=== PATIENT | male | born 1955 | race Caucasian/White ===

== ENCOUNTER 2018-02-22 19:27 | Inpatient (IN) | payer BC ==
[~2018-02-22] VITALS: Ht 193 cm; Wt 124.0 kg
[~2018-02-22 19:27] MED LIST: ADULT ASPIRIN R81 MG PO; ASPIR 8181 M1 PO; DAILY VALUE1 EACH PO; LIPITOR40 MG PO; SIMVASTATIN10 MG PO
[2018-02-22 19:44] LABS: BASOPHIL (%) 0.7 % (0-1); BASOPHIL COUNT 0.1 K/uL (0-0.1); EOSINOPHIL COUNT 0.4 K/uL (0-0.3); HEMATOCRIT 46.4 % (38.0-50.0); HEMOGLOBIN 15.9 G/DL (12.5-16.6); IMMATURE GRANULOCYTE (%) 0.2 % (0.0-0.7); LYMPHOCYTE (%) 26.2 % (15-42); LYMPHOCYTE COUNT 2.6 K/uL (1.0-2.8); MCH 30.8 PG (29.0-34.0); MCHC 34.3 G/DL (30.0-36.0); MCV 89.7 FL (86-99); MONOCYTE (%) 10.6 % (3-12); MONOCYTE COUNT 1.1 K/uL (0-0.8); NEUTROPHIL (%) 58.3 % (45-76); NEUTROPHIL COUNT 5.8 K/uL (1.8-6.4); PLATELET COUNT 234 K/uL (156-360); RBC DIS.WIDTH-CV 12.9 % (11.8-14.6); RBC DIS.WIDTH-SD 42.4 % (39-53); RED BLOOD COUNT 5.17 M/uL (4.00-5.50); WHITE BLOOD COUNT 9.9 K/uL (4.1-10.2)
[2018-02-22 19:59] LABS: AMYLASE 69 IU/L (1-118); CHLORIDE 105 mEq/L (99-109); SODIUM 138 mEq/L (136-147)
[2018-02-22 20:01] LABS: GLUCOSE 107 mg/dL (70-99)
[2018-02-22 20:04] LABS: SERUM ETHYL ALCOHOL < 10 mg/dL
[2018-02-22 20:05] LABS: CREATININE 1.1 mg/dL (0.6-1.3); GFR ESTIMATE (CALCULATED) > 59 mL/min/ (58.99-99999)
[2018-02-22 20:06] LABS: UREA NITROGEN (BUN) 19 mg/dL (9-23)
[2018-02-22 20:08] LABS: LIPASE 24 U/L (1.0-51.0)
[2018-02-22 20:10] LABS: TROP-I INTERPRETATION NEGATIVE; TROPONIN-I < 0.01 ng/mL (0.0-0.30)
[2018-02-22 21:04] LABS: APPEARANCE CLEAR ((CLEAR)); BILIRUBIN NEGATIVE; BLOOD NEGATIVE; COLOR STRAW ((YELLOW)); GLUCOSE (STRIP) NEGATIVE; KETONES NEGATIVE; LEUKOCYTES NEGATIVE; NITRITE NEGATIVE; PROTEIN (STRIP) NEGATIVE; SPECIFIC GRAVITY 1.011 (1.000-1.030); UCUL ADDED? NO; UROBILINOGEN 0.2 MG/DL (0.2-1.0)
[2018-02-22 21:37] LABS: AMPHETAMINE NEGATIVE (500 ng/mL); BARBITURATES NEGATIVE (200 ng/mL); BENZODIAZEPINES NEGATIVE (150 ng/mL); BUPRENORPHINE NEGATIVE (10 ng/mL); COCAINE NEGATIVE (150 ng/mL); METHADONE NEGATIVE (200 ng/mL); METHAMPHETAMINE NEGATIVE (500 ng/mL); OPIATES (MORPHINE) NEGATIVE (100 ng/mL); OXYCODONE NEGATIVE (100 ng/mL); PHENCYCLIDINE NEGATIVE (25 ng/mL); PROPOXYPHENE NEGATIVE (300 ng/mL); THC CANNABINOIDS NEGATIVE (50 ng/mL); TRICYCLIC ANTIDEPRESSANTS NEGATIVE (300 ng/mL)
[2018-02-22] MEDS ORDERED: FISH OIL 1,0001 EAC7 PO (22:23)
[2018-02-22] MEDS ORDERED: GLUCOSAMINE &1 EAC1 PO (22:23)
[2018-02-23 00:37] VITALS: BP 141/84
[2018-02-23 07:38] VITALS: BP 133/84
[2018-02-23 12:22] VITALS: BP 129/64
== END 2018-02-23 15:55 | disposition home or self-care (01) | DRG 86 ==
LOC: EME 19:27 → EDOF 22:20 → CANRESERV 22:25 → ENRESERV 22:25 → 3EAST 02-23 00:22
PROVIDERS: Emergency Medicine
DX: S06.5X0A Traumatic subdural hemorrhage without loss of consciousness, initial encounter (principal); R47.01 Aphasia; E78.5 Hyperlipidemia, unspecified; W22.8XXA Striking against or struck by other objects, initial encounter; Y92.818 Other transport vehicle as the place of occurrence of the external cause; R20.2 Paresthesia of skin; Z79.82 Long term (current) use of aspirin
CPT/HCPCS: 70450; 71045; 80048; 81003; 82150; 83690; 84484; 85025; 85610; 85730; 86850; 86900; 86901; 93005; 99281; 99284; G0480; J3480

== ENCOUNTER 2018-02-28 20:48 | Observation (INO) | payer BC ==
[~2018-02-28] VITALS: Ht 193 cm; Wt 122.1 kg
[~2018-02-28 20:48] MED LIST changes: +FISH OIL 1,0001 EAC7 PO; +GLUCOSAMINE &1 EAC1 PO
[2018-02-28 21:13] LABS: HEMATOCRIT 44.2 % (38.0-50.0); HEMOGLOBIN 15.2 G/DL (12.5-16.6); MCHC 34.4 G/DL (30.0-36.0); PLATELET COUNT 222 K/uL (156-360); RBC DIS.WIDTH-SD 42.5 % (39-53); RED BLOOD COUNT 4.91 M/uL (4.00-5.50); WHITE BLOOD COUNT 9.6 K/uL (4.1-10.2)
[2018-02-28 21:22] LABS: PTT 29.3 SEC (25-37)
[2018-02-28 21:23] LABS: CHLORIDE 110 mEq/L (99-109); POTASSIUM 3.7 mEq/L (3.7-5.4); SODIUM 144 mEq/L (136-147)
[2018-02-28 21:25] LABS: GLUCOSE 109 mg/dL (70-99)
[2018-02-28 21:29] LABS: CREATININE 1.1 mg/dL (0.6-1.3); GFR ESTIMATE (CALCULATED) > 59 mL/min/ (58.99-99999)
[2018-02-28 21:30] LABS: UREA NITROGEN (BUN) 13 mg/dL (9-23)
[2018-02-28 21:37] LABS: TROP-I INTERPRETATION NEGATIVE; TROPONIN-I < 0.01 ng/mL (0.0-0.30)
[2018-02-28 22:49] LABS: HDL CHOLESTEROL 33 MG/DL (Desirable>=40); LDL CHOLESTEROL 69 mg/dL (Desirable<100); NON-HDL CHOLESTEROL 99 mg/dL (Desirable<160); TOTAL CHOLESTEROL 132 mg/dL (Desirable<200); TRIGLYCERIDES 149 MG/DL (Normal: <150)
[2018-02-28 23:30] VITALS: BP 134/72
[2018-03-01 04:01] VITALS: BP 118/58
[2018-03-01 07:47] VITALS: BP 125/77
[2018-03-01 11:22] VITALS: BP 137/91
[2018-03-01 16:21] VITALS: BP 134/76
[2018-03-01 19:15] VITALS: BP 128/78
[2018-03-03 12:06] LABS: HEMOGLOBIN A1c (GLYCOHEMOGLOB) 5.4 % (Below 5.7)
== END 2018-03-01 20:59 | disposition home or self-care (01) ==
LOC: EME → EDBD 20:48 → EDOF 22:00 → ENRESERV 22:20 → 4SOUTH 23:08
PROVIDERS: Emergency Medicine; Physician Assistant Medical; Specialist
DX: R20.0 Anesthesia of skin (principal); R51 Headache; S06.5X0D Traumatic subdural hemorrhage without loss of consciousness, subsequent encounter; W22.09XD Striking against other stationary object, subsequent encounter; Z86.73 Personal history of transient ischemic attack (TIA), and cerebral infarction without residual deficits; I10 Essential (primary) hypertension; Z79.82 Long term (current) use of aspirin; Z90.49 Acquired absence of other specified parts of digestive tract; E78.2 Mixed hyperlipidemia
CPT/HCPCS: 70450; 70551; 80048; 80061; 81240 90; 83036; 83090 90; 84484; 85027; 85240 90; 85300 90; 85303 90; 85305 90; 85306 90; 85610; 85613 90; 85730; 85730 90; 86146 90; 86147 90; 93005; 99281; 99285; G0378